=== PATIENT | male | born 1960 | race Native Hawaiian/Other Pacific Islander ===

== ENCOUNTER 2020-04-15 16:59 | Emergency (ER) | payer OTHER ==
[~2020-04-15] VITALS: Ht 167.6 cm; Wt 83.6 kg
[~2020-04-15 16:59] MED LIST: IBUP-2071 PO; TRAM50TA4 PO
[2020-04-15] MEDS ORDERED: AMLO5TAB9 PO (17:06)
[2020-04-15] MEDS ORDERED: ASPI-728 PO (17:06)
[2020-04-15] MEDS ORDERED: ATOR10TA84 PO (17:06)
[2020-04-15 18:57] VITALS: BP 135/91
== END 2020-04-15 19:07 | disposition home or self-care (01) ==
LOC: EMS 16:59
DX: F41.9 Anxiety disorder, unspecified (principal); R00.2 Palpitations; I10 Essential (primary) hypertension; E78.00 Pure hypercholesterolemia, unspecified